=== PATIENT | female | born 1950 | race Caucasian/White ===

== ENCOUNTER → 2017-02-18 | Outpatient (CLI) | payer MEDICARE, OTHER ==
[~2017-02-18] MED LIST: CALCIUM600 MG PO; CO Q-1010 MG PO; CRESTOR5 MG PO; DAILY MULTIPLE1 EAC1 PO; GERITOL COMPLE1 EACH PO; LORTAB LIQUID D15 ML PO; MAPAP PM (TYLEN1 TAB PO; METOPROLOL SUCC50 MG PO; OSTEO BI-FLEX1 EAC1 PO; ZOFRAN4 MG PO
== END | disposition home or self-care (01) ==
LOC: PTH.S 07:34
DX: Z01.818 Encounter for other preprocedural examination (principal)

== ENCOUNTER 2017-02-23 06:18 | Observation (INO) | payer MEDICARE, OTHER ==
[~2017-02-23] VITALS: Ht 170.2 cm; Wt 77.0 kg
[2017-02-24] MEDS ORDERED: CALCIUM600 MG PO (13:28)
[2017-02-24] MEDS ORDERED: OSTEO BI-FLEX1 EAC1 PO (13:28)
[2017-02-24] MEDS ORDERED: GERITOL COMPLE1 EACH PO (13:29)
[2017-02-24] MEDS ORDERED: CRESTOR5 MG PO (13:29)
[2017-02-24] MEDS ORDERED: METOPROLOL SUCC50 MG PO (13:29)
[2017-02-24] MEDS ORDERED: MAPAP PM (TYLEN1 TAB PO (13:29)
[2017-02-24] MEDS ORDERED: DAILY MULTIPLE1 EAC1 PO (13:30)
[2017-02-24] MEDS ORDERED: ZOFRAN4 MG PO (13:30)
[2017-02-24] MEDS ORDERED: LORTAB LIQUID D15 ML PO (13:31)
[2017-02-24] MEDS ORDERED: CO Q-1010 MG PO (13:32)
--- NOTE | 2017-03-14 12:38 | OR ---
ADMIT: 02/23/2017 RM/LOC: [address] [facility] MR#: [id number] [facility]#: [id number] [address] [place] [address] [address] [id number] Operative/Delivery Room Report SEX: F AGE: 67 : 1950 Corrected: 02/24/2017 1111 djs SURGERY DATE: 02/23/2017 SURGEON: Rommel Huston MD [employer]EMARK AFFIXER:: Juan Finch MD PREOPERATIVE DIAGNOSES: 1. Hiatal hernia. 2. Underlying reflux. POSTOPERATIVE DIAGNOSES: 1. Hiatal hernia. 2. Underlying reflux. PROCEDURE PERFORMED: Laparoscopic Denny fundoplication. ANESTHESIA: General endotracheal. ESTIMATED BLOOD LOSS: Less than 10 mL. DESCRIPTION OF PROCEDURE: After appropriate informed consent was obtained, the patient was brought to the operating room. General endotracheal anesthesia was induced. The patient's abdomen was prepped and draped in a sterile fashion. Left upper quadrant incision was created. Veress needle was introduced, the abdomen was insufflated with CO2. Just off to left side of the abdomen, a 5 mm port was placed. Camera was introduced, the abdomen was surveyed. She had no intraabdominal adhesions. Four additional ports were then placed in the upper abdomen. The liver retractors were placed up underneath the left lobe of liver and held in place with Kenny arm. She did have a large hiatal hernia that was easily identified. Just a couple centimeters or so of her stomach was up into the chest, this was easily reduced. I started by dissecting through the gastrohepatic ligament. This was done with Harmonic Scalpel. This dissection was then carried anteriorly through the phrenoesophageal ligament. Camera was taken to avoid any injury to the esophagus or to the vagus nerve. The right olesya was then dissected free from the esophagus. We got into the nice areolar plane and were able to dissect this well up into the mediastinum. This dissection was carried anterior to the esophagus and then down along the left side. I then took down some of the short gastrics along the greater curve of the stomach and continued the dissection along the left olesya up into the mediastinum. With this accomplished, posteriorly, there a window was created and the dissection was continued up posteriorly again taking care to avoid any injury to the posterior vagus. With the esophagus circumferentially dissected free and the hiatal hernia reduced, I then closed the hiatal defect with 3-0 silk sutures using Endo Stitch device placed posteriorly and a single anterior stitch on ADMIT: 02/23/2017 RM/LOC: [address] [facility] MR#: [id number] [address] [place] [address], [place] [address] Operative/Delivery Room Report SEX: F AGE: 67 : 1950 the crura. A nice floppy 360 degree wrap was then fashioned with the fundus. A total of three sutures were used to tack the wrap together. With this accomplished, everything appeared hemostatic. Essentially lost really no blood during the entire procedure. The liver retractors removed. All the wounds were infiltrated with Marcaine. The left upper quadrant 11 mm port site was then closed with a [id number] 0 Vicryl suture. The abdomen was next desufflated, ports removed, skin closed with 4-0 Monocryl in the subcuticular layer. Sterile dressings were then applied. Dr. Finch assisted in this entire procedure. His help was necessary for retraction and camera driving during this dissection. Rommel Huston MD/ pineda JOB #: [id number] CC: Rommel Huston, Attending Physician NO FAMILY PHYSICIAN, Family Physician Corrected: 02/24/2017 1111 djs
== END 2017-02-23 20:45 | disposition home or self-care (01) ==
LOC: WOR 06:18 → 6PED 08:41
PROVIDERS: ADMIT Surgery
PROC: 0DV44ZZ Restriction of Esophagogastric Junction, Percutaneous Endoscopic Approach (ICD-10-PCS; principal; 2017-02-23)
DX: K44.9 Diaphragmatic hernia without obstruction or gangrene (principal); K21.9 Gastro-esophageal reflux disease without esophagitis; I10 Essential (primary) hypertension; E78.00 Pure hypercholesterolemia, unspecified; Z90.710 Acquired absence of both cervix and uterus; Z98.49 Cataract extraction status, unspecified eye; Z98.890 Other specified postprocedural states; Z79.899 Other long term (current) drug therapy; Z88.6 Allergy status to analgesic agent